=== PATIENT | male | born 1935 | race Caucasian/White ===

== ENCOUNTER 2017-12-03 23:18 | Emergency (ER) | payer BC, MEDICARE ==
[2017-12-04] MEDS ORDERED: Famotidine 20 MG Tab PO ONE (00:09)
[2017-12-04] MEDS ORDERED: Sodium Chloride 0.9% 10 ML Syringe FLUSH PRN (00:09)
[2017-12-04] MEDS ORDERED: Alum Hydrox/Mag Hydrox/Simeth 30 ML, Lidocaine 2% 15 ML PO ONE ×2 (00:11)
--- NOTE | 2017-12-04 01:26 | EDM.PDOC ---
ED HPI GENERAL MEDICAL PROBLEM - General Chief Complaint: Abdominal Pain Stated Complaint: UPPER ABDOMINAL PAIN Time Seen by Provider: 12/03/17 23:49 Source of Information: Reports: Patient History Limitations: Reports: No Limitations - History of Present Illness INITIAL COMMENTS - FREE TEXT/NARRATIVE: The patient presents with upper abdominal pain that radiates into his chest. The patient says the pain is burning. It happened last night when he laid down to go to bed. He got up and sat in his chair and it was better after awhile and he could go to bed. This evening it happened again. He is better now. He has no shortness of breath, fever, chills, nausea, or vomiting. Onset: Sudden Duration: Day(s): (Yesterday) Location: Reports: Chest, Abdomen Quality: Reports: Burning Severity: Moderate (Gone now) Improves with: Reports: None Worsens with: Reports: None Associated Symptoms: Reports: Chest Pain. Denies: Cough, Fever/Chills, Headaches, Nausea/Vomiting, Shortness of Breath - Related Data Allergies Allergy/AdvReac Type Severity Reaction Status Date / Time No Known Allergies Allergy Verified 12/03/17 23:52 Home Meds: Home Meds Losartan [Cozaar] 100 mg PO DAILY 12/03/17 [History] Past Medical History Cardiovascular History: Reports: Hypertension Social & Family History - Tobacco Use Smoking Status *Q: Former Smoker Used Tobacco, but Quit: Yes Month/Year Tobacco Last Used: 25 yrs - Caffeine Use Caffeine Use: Reports: Coffee - Recreational Drug Use Recreational Drug Use: No ED ROS GENERAL - Review of Systems Review Of Systems: See Below Constitutional: Reports: No Symptoms HEENT: Reports: No Symptoms Respiratory: Reports: No Symptoms Cardiovascular: Reports: Chest Pain Endocrine: Reports: No Symptoms GI/Abdominal: Reports: Abdominal Pain. Denies: Nausea, Vomiting : Reports: No Symptoms Musculoskeletal: Reports: No Symptoms Skin: Reports: No Symptoms ED EXAM, GI/ABD - Physical Exam Exam: See Below Exam Limited By: No Limitations General Appearance: Alert, No Apparent Distress Ears: Normal External Exam Nose: Normal Inspection Head: Atraumatic, Normocephalic Neck: Normal Inspection Respiratory/Chest: No Respiratory Distress, Lungs Clear, Normal Breath Sounds Cardiovascular: No Edema, No Murmur, Irregularly Irregular GI/Abdominal Exam: Soft, Non-Tender, No Organomegaly, No Mass Back Exam: Normal Inspection Extremities: Normal Inspection EKG INTERPRETATION EKG Date: 12/04/17 Time: 23:54 Rhythm: A-Fib Rate (Beats/Min): 77 [place]: LAD-Left [place] Deviation QRS: Normal ST-T: Normal QT: Normal EKG Interpretation Comments: Q waves in the interior and anteroseptal leads. Course - Vital Signs Last Recorded V/S: Last Vital Signs Temp 97.9 F 12/03/17 23:40 Pulse 73 12/03/17 23:40 Resp 18 12/03/17 23:40 BP 196/88 H 12/03/17 23:40 Pulse Ox 94 L 12/03/17 23:40 - Orders/Labs/Meds Orders: Active Orders 24 hr Category Date Time Status EKG Documentation Completion [RC] ASDIRECTED Care 12/04/17 01:30 Active Peripheral IV Care [RC] . DIRECTED Care 12/04/17 00:11 Active Chest 1V Frontal [CR] Stat Exams 12/04/17 00:09 Taken Sodium Chloride 0.9% [Saline Flush] Med 12/04/17 00:09 Active 10 ml FLUSH ASDIRECTED PRN ED GI Medications Reflex [OM.PC] Stat Oth 12/04/17 00:09 Ordered Peripheral IV Insertion Adult [OM.PC] Stat Oth 12/04/17 00:09 Ordered EKG 12 Lead [EK] Stat Ther 12/04/17 01:30 Ordered Medication Orders Sodium Chloride (Saline Flush) 10 ml FLUSH ASDIRECTED PRN PRN Reason: Keep Vein Open Last Admin: 12/04/17 00:24 Dose: 10 ml Labs: Laboratory Tests 12/04/17 12/04/17 Range/Units 00:28 00:28 WBC 7.22 (4.23-9.07) K/mm3 RBC 4.40 L (4.63-6.08) M/mm3 Hgb 13.6 L (13.7-17.5) gm/L Hct 39.3 L (40.1-51.0) % MCV 89.3 (79.0-92.2) fl MCH 30.9 (25.7-32.2) pg MCHC 34.6 (32.2-35.5) g/dl RDW Std Deviation 43.5 (35.1-43.9) fL Plt Count 242 (163-337) K/mm3 MPV 10.4 (9.4-12.3) fl Neut % (Auto) 67.1 (34.0-67.9) % Lymph % (Auto) 23.0 (21.8-53.1) % [place] % (Auto) 6.4 (5.3-12.2) % Eos % (Auto) 3.0 (0.8-7.0) Baso % (Auto) 0.4 (0.1-1.2) % Neut # (Auto) 4.84 (1.78-5.38) K/mm3 Lymph # (Auto) 1.66 (1.32-3.57) K/mm3 [place] # (Auto) 0.46 (0.30-0.82) K/mm3 Eos # (Auto) 0.22 (0.04-0.54) K/mm3 Baso # (Auto) 0.03 (0.01-0.08) K/mm3 Sodium 139 (136-145) mEq/L Potassium 4.0 (3.5-5.1) mEq/L Chloride 104 (98-107) mEq/L Carbon Dioxide 23 (21-32) mEq/L Anion Gap 16.0 H (5-15) BUN 28 H (7-18) mg/dL Creatinine 1.6 H (0.7-1.3) mg/dL Est Cr Clr Drug Dosing 34.44 mL/min Estimated GFR (MDRD) 42 (>60) mL/min BUN/Creatinine Ratio 17.5 (14-18) Glucose 195 H (83-115) mg/dL Calcium 8.5 (8.5-10.1) mg/dL Total Bilirubin 0.7 (0.2-1.0) mg/dL AST 20 (15-37) U/L ALT 36 (16-63) U/L Alkaline Phosphatase 56 (46-116) U/L Troponin I < 0.017 (0.00-0.056) ng/mL Total Protein 7.1 (6.4-8.2) g/dl Albumin 3.9 (3.4-5.0) g/dl Globulin 3.2 gm/dL Albumin/Globulin Ratio 1.2 (1-2) Meds: Medications Generic Name Dose Route Start Last Admin Trade Name Freq PRN Reason Stop Dose Admin Sodium Chloride 10 ml 12/04/17 00:09 12/04/17 00:24 Saline Flush FLUSH 10 ml ASDIRECTED PRN Administration Keep Vein Open Discontinued Medications Generic Name Dose Route Start Last Admin Trade Name Sharad PRN Reason Stop Dose Admin Al Hydroxide/Mg Hydroxide 30 0 ml 12/04/17 00:11 12/04/17 00:24 ml/ Lidocaine HCl 15 ml PO 12/04/17 00:12 45 ml ONETIME ONE Administration Famotidine 20 mg 12/04/17 00:09 12/04/17 00:24 Pepcid PO 12/04/17 00:10 20 mg ONETIME ONE Administration - Re-Assessments/Exams Free Text/Narrative Re-Assessment/Exam: 12/04/17 01:25 I ordered an IV saline lock, pepcid 20mg IV, GI cocktail, EKG, CXR and labs. His CXR looks good. His initial EKG did not show any P waves and there was some irregularity to it. I was thinking this could be A-fib but I was watching the monitor and he did have p waves there. I did another EKG and he had a NSR with no acute changes. His CXR looks good. His CBC looked good. His creatinine was slightly elevated at 1.6. He feels better. I feel this was some reflux. I will have him take some pepcid for a week. Departure - Departure Time of Disposition: 02:00 Disposition: Home, Self-Care 01 Condition: Good Clinical Impression: Reflux esophagitis - Discharge Information *PRESCRIPTION DRUG MONITORING PROGRAM REVIEWED*: Not Applicable *COPY OF PRESCRIPTION DRUG MONITORING REPORT IN PATIENT RON: Not Applicable Referrals: Aris Falcon MD [Primary Care Provider] - 1 Week Forms: ED Department Discharge Additional Instructions: Take pepcid daily for a week. Try to avoid spicy foods and do not eat to late. Please return if you are worse. - My Orders Last 24 Hours: My Active Orders 12/04/17 00:09 Chest 1V Frontal [CR] Stat Sodium Chloride 0.9% [Saline Flush] 10 ml FLUSH ASDIRECTED PRN ED GI Medications Reflex [OM.PC] Stat Peripheral IV Insertion Adult [OM.PC] Stat 12/04/17 00:11 Peripheral IV Care [RC] . DIRECTED 12/04/17 01:30 EKG Documentation Completion [RC] ASDIRECTED EKG 12 Lead [EK] Stat - Assessment/Plan Last 24 Hours: My Active Orders 12/04/17 00:09 Chest 1V Frontal [CR] Stat Sodium Chloride 0.9% [Saline Flush] 10 ml FLUSH ASDIRECTED PRN ED GI Medications Reflex [OM.PC] Stat Peripheral IV Insertion Adult [OM.PC] Stat 12/04/17 00:11 Peripheral IV Care [RC] . DIRECTED 12/04/17 01:30 EKG Documentation Completion [RC] ASDIRECTED EKG 12 Lead [EK] Stat
--- NOTE | 2017-12-04 13:31 | CR ---
Chest: Portable view of the chest was obtained. Comparison: No prior chest x-ray. Heart size at the upper limits of normal. Tortuous thoracic aorta is seen. Lungs are clear without acute parenchymal change. Bony structures are grossly intact. Impression: 1. Nothing acute is seen on portable chest x-ray. Diagnostic code #2
== END 2017-12-04 02:14 | disposition home or self-care (01) ==
LOC: SUPCPDRO 23:18 → JD.ED 23:18
DX: K21.0 Gastro-esophageal reflux disease with esophagitis (principal); I10 Essential (primary) hypertension; Z87.891 Personal history of nicotine dependence; Z79.899 Other long term (current) drug therapy
CPT/HCPCS: 36415; 71045; 80053; 84484; 85025; 93005; 99285; A9270; J7050; 93010; 99283-25

== ENCOUNTER 2017-12-08 13:08 | Observation (INO) | payer MEDICARE, BC ==
[2017-12-08] MEDS ORDERED: Sodium Chloride 0.9% 10 ML Syringe FLUSH PRN (13:39)
[2017-12-08] MEDS ORDERED: Aspirin 81 MG Tab.Chew PO ONE (13:39)
[2017-12-08] MEDS ORDERED: Famotidine 20 MG/2 ML SDV IVPUSH ONE (13:40)
--- NOTE | 2017-12-08 15:13 | EDM.PDOC ---
ED HPI GENERAL MEDICAL PROBLEM - General Chief Complaint: Gastrointestinal Problem Stated Complaint: CHEST PAIN Time Seen by Provider: 12/08/17 13:13 Source of Information: Reports: Patient History Limitations: Reports: No Limitations - History of Present Illness INITIAL COMMENTS - FREE TEXT/NARRATIVE: The patient presents with epigastric pain that radiates to his chest. This started about 1/2 hour before arrival. This has been on ongoing problem for the past 6 days. He was seen her by me 5 days ago for the same. His EKG, CXR and labs looked good. I gave him some pepcid IV and a GI cocktail and he did good. He continues to have episodes of this burning chest pain. The pain will come and go. It usually lasts for 15 minutes at a time and goes away for hours. He says this happens when he walks at times. He is also short of breath at times. He usually walks a mile a day but he has been doing less because of the chest pain. He went to see Dr Falcon today and he did an EKG and checked his troponin. His EKG looked good and his troponin was negative. He set up a stress test for tomorrow. Dr Falcon told the patient if he had more pain to come in to the ER right away. He had more pain and came in. The pain is gone now. He has no fever, chills, cough, nausea or vomiting. He has a history of hypertension but no GA. Onset: Gradual Duration: Day(s): (6) Location: Reports: Chest Quality: Reports: Burning Severity: Moderate Improves with: Reports: None Worsens with: Reports: None Associated Symptoms: Reports: Chest Pain, Shortness of Breath Treatments FIRE ADJUSTER: Reports: Other (see below) Other Treatments FIRE ADJUSTER: seen in clinic epigastric Pain Score (Numeric/FACES): 8 - Related Data Allergies Allergy/AdvReac Type Severity Reaction Status Date / Time No Known Allergies Allergy Verified 12/08/17 13:18 Home Meds: Home Meds Losartan [Cozaar] 100 mg PO DAILY 12/03/17 [History] Ascorbate Calcium [Vitamin C] 500 mg PO DAILY 12/08/17 [History] Aspirin 81 mg PO DAILY 12/08/17 [History] Cyanocobalamin (Vitamin B12) [Vitamin B12] 1,000 mcg PO DAILY 12/08/17 [History] Naproxen Sodium [Aleve] 220 mg PO BID PRN 12/08/17 [History] Vitamin B Complex & Vit C No.4 [Super B Complex] 150 mg PO DAILY 12/08/17 [ History] Past Medical History HEENT History: Reports: Impaired Vision Cardiovascular History: Reports: Hypertension Respiratory History: Reports: SOB Gastrointestinal History: Reports: GERD Other Gastrointestinal History: reflux Social & Family History - Family History Family Medical History: Noncontributory - Tobacco Use Smoking Status *Q: Never Smoker Second Hand Smoke Exposure: No - Caffeine Use Caffeine Use: Reports: Coffee - Recreational Drug Use Recreational Drug Use: No ED ROS GENERAL - Review of Systems Review Of Systems: See Below Constitutional: Reports: No Symptoms HEENT: Reports: No Symptoms Respiratory: Reports: Shortness of Breath Cardiovascular: Reports: Chest Pain Endocrine: Reports: No Symptoms GI/Abdominal: Reports: No Symptoms : Reports: No Symptoms Musculoskeletal: Reports: No Symptoms ED EXAM, GI/ABD - Physical Exam Exam: See Below Exam Limited By: No Limitations General Appearance: Alert, No Apparent Distress Ears: Normal External Exam Nose: Normal Inspection Head: Atraumatic, Normocephalic Neck: Normal Inspection Respiratory/Chest: No Respiratory Distress, Lungs Clear, Normal Breath Sounds Cardiovascular: Regular Rate, Rhythm, No Edema, No Murmur GI/Abdominal Exam: Soft, Non-Tender, No Organomegaly, No Mass Back Exam: Normal Inspection Extremities: Normal Inspection Neurological: Alert, Oriented, No Motor/Sensory Deficits EKG INTERPRETATION EKG Date: 12/08/17 Time: 13:23 Rhythm: NSR Rate (Beats/Min): 66 [place]: Normal P-Wave: Present QRS: Normal ST-T: Normal QT: Normal OR/PQ Interval: 1st degree HB Course - Vital Signs Last Recorded V/S: Last Vital Signs Temp 98.2 F 12/08/17 13:08 Pulse 69 12/08/17 13:56 Resp 20 12/08/17 13:56 BP 144/68 H 12/08/17 13:56 Pulse Ox 94 L 12/08/17 13:56 - Orders/Labs/Meds Orders: Active Orders 24 hr Category Date Time Status Cardiac Monitoring [RC] . DIRECTED Care 12/08/17 13:39 Active EKG Documentation Completion [RC] ASDIRECTED Care 12/08/17 13:25 Active Peripheral IV Care [RC] . DIRECTED Care 12/08/17 13:40 Active Chest 1V Frontal [CR] Stat Exams 12/08/17 13:40 Taken Sodium Chloride 0.9% [Saline Flush] Med 12/08/17 13:39 Active 10 ml FLUSH ASDIRECTED PRN Peripheral IV Insertion Adult [OM.PC] Stat Oth 12/08/17 13:39 Ordered EKG 12 Lead [EK] Stat Ther 12/08/17 13:25 Ordered Medication Orders Sodium Chloride (Saline Flush) 10 ml FLUSH ASDIRECTED PRN PRN Reason: Keep Vein Open Last Admin: 12/08/17 13:53 Dose: 10 ml Labs: Laboratory Tests 12/08/17 12/08/17 12/08/17 Range/Units 13:25 13:25 13:25 WBC 8.79 (4.23-9.07) K/mm3 RBC 4.82 (4.63-6.08) M/mm3 Hgb 15.1 (13.7-17.5) gm/L Hct 43.4 (40.1-51.0) % MCV 90.0 (79.0-92.2) fl MCH 31.3 (25.7-32.2) pg MCHC 34.8 (32.2-35.5) g/dl RDW Std Deviation 44.0 H (35.1-43.9) fL Plt Count 249 (163-337) K/mm3 MPV 10.6 (9.4-12.3) fl Neut % (Auto) 62.6 (34.0-67.9) % Lymph % (Auto) 28.8 (21.8-53.1) % [place] % (Auto) 5.9 (5.3-12.2) % Eos % (Auto) 2.3 (0.8-7.0) Baso % (Auto) 0.2 (0.1-1.2) % Neut # (Auto) 5.50 H (1.78-5.38) K/mm3 Lymph # (Auto) 2.53 (1.32-3.57) K/mm3 [place] # (Auto) 0.52 (0.30-0.82) K/mm3 Eos # (Auto) 0.20 (0.04-0.54) K/mm3 Baso # (Auto) 0.02 (0.01-0.08) K/mm3 D-Dimer, Quantitative 0.49 (0.19-0.50) mg/L Sodium 138 (136-145) mEq/L Potassium 3.9 (3.5-5.1) mEq/L Chloride 101 (98-107) mEq/L Carbon Dioxide 25 (21-32) mEq/L Anion Gap 15.9 H (5-15) BUN 23 H (7-18) mg/dL Creatinine 1.7 H (0.7-1.3) mg/dL Est Cr Clr Drug Dosing 32.41 mL/min Estimated GFR (MDRD) 39 (>60) mL/min BUN/Creatinine Ratio 13.5 L (14-18) Glucose 264 H (83-115) mg/dL Calcium 9.1 (8.5-10.1) mg/dL Total Bilirubin 0.9 (0.2-1.0) mg/dL AST 21 (15-37) U/L ALT 46 (16-63) U/L Alkaline Phosphatase 60 (46-116) U/L Troponin I 0.023 (0.00-0.056) ng/mL Total Protein 7.9 (6.4-8.2) g/dl Albumin 4.2 (3.4-5.0) g/dl Globulin 3.7 gm/dL Albumin/Globulin Ratio 1.1 (1-2) H. pylori IgG Antibody (NEGATIVE) 12/08/17 Range/Units 13:25 WBC (4.23-9.07) K/mm3 RBC (4.63-6.08) M/mm3 Hgb (13.7-17.5) gm/L Hct (40.1-51.0) % MCV (79.0-92.2) fl MCH (25.7-32.2) pg MCHC (32.2-35.5) g/dl RDW Std Deviation (35.1-43.9) fL Plt Count (163-337) K/mm3 MPV (9.4-12.3) fl Neut % (Auto) (34.0-67.9) % Lymph % (Auto) (21.8-53.1) % [place] % (Auto) (5.3-12.2) % Eos % (Auto) (0.8-7.0) Baso % (Auto) (0.1-1.2) % Neut # (Auto) (1.78-5.38) K/mm3 Lymph # (Auto) (1.32-3.57) K/mm3 [place] # (Auto) (0.30-0.82) K/mm3 Eos # (Auto) (0.04-0.54) K/mm3 Baso # (Auto) (0.01-0.08) K/mm3 D-Dimer, Quantitative (0.19-0.50) mg/L Sodium (136-145) mEq/L Potassium (3.5-5.1) mEq/L Chloride (98-107) mEq/L Carbon Dioxide (21-32) mEq/L Anion Gap (5-15) BUN (7-18) mg/dL Creatinine (0.7-1.3) mg/dL Est Cr Clr Drug Dosing mL/min Estimated GFR (MDRD) (>60) mL/min BUN/Creatinine Ratio (14-18) Glucose (83-115) mg/dL Calcium (8.5-10.1) mg/dL Total Bilirubin (0.2-1.0) mg/dL AST (15-37) U/L ALT (16-63) U/L Alkaline Phosphatase (46-116) U/L Troponin I (0.00-0.056) ng/mL Total Protein (6.4-8.2) g/dl Albumin (3.4-5.0) g/dl Globulin gm/dL Albumin/Globulin Ratio (1-2) H. pylori IgG Antibody Negative (NEGATIVE) Meds: Medications Generic Name Dose Route Start Last Admin Trade Name Freq PRN Reason Stop Dose Admin Sodium Chloride 10 ml 12/08/17 13:39 12/08/17 13:53 Saline Flush FLUSH 10 ml ASDIRECTED PRN Administration Keep Vein Open Discontinued Medications Generic Name Dose Route Start Last Admin Trade Name Freq PRN Reason Stop Dose Admin Aspirin 324 mg 12/08/17 13:39 12/08/17 13:53 Aspirin PO 12/08/17 13:40 324 mg ONETIME ONE Administration Famotidine 20 mg 12/08/17 13:40 12/08/17 13:53 Pepcid IVPUSH 08/20/18 13:41 20 mg ONETIME ONE Administration - Re-Assessments/Exams Free Text/Narrative Re-Assessment/Exam: 12/08/17 15:19 I ordered an IV saline lock, EKG, CXR, labs and aspirin. His EKG shows a NSR with no acute changes. His CXR shows nothing acute. His CBC and CMP look good. His troponin and D-dimer were normal. He still has no pain. I called Dr Falcon and we both agreed he should be admitted and stressed in the morning. I called Dr Tavares and she will come see the patient. 12/08/17 16:09 Dr Tavares agreed to the observation admission. Departure - Departure Time of Disposition: 16:10 Disposition: Refer to Observation Condition: Good Clinical Impression: Chest pain Qualifiers: Chest pain type: unspecified Qualified Code(s): R07.9 - Chest pain, unspecified - Discharge Information *PRESCRIPTION DRUG MONITORING PROGRAM REVIEWED*: Not Applicable *COPY OF PRESCRIPTION DRUG MONITORING REPORT IN PATIENT RON: Not Applicable Referrals: Aris Falcon MD [Primary Care Provider] - Forms: ED Department Discharge - My Orders Last 24 Hours: My Active Orders 12/08/17 13:25 EKG Documentation Completion [RC] ASDIRECTED EKG 12 Lead [EK] Stat 12/08/17 13:39 Cardiac Monitoring [RC] . DIRECTED Sodium Chloride 0.9% [Saline Flush] 10 ml FLUSH ASDIRECTED PRN Peripheral IV Insertion Adult [OM.PC] Stat 12/08/17 13:40 Peripheral IV Care [RC] . DIRECTED Chest 1V Frontal [CR] Stat - Assessment/Plan Last 24 Hours: My Active Orders 12/08/17 13:25 EKG Documentation Completion [RC] ASDIRECTED EKG 12 Lead [EK] Stat 12/08/17 13:39 Cardiac Monitoring [RC] . DIRECTED Sodium Chloride 0.9% [Saline Flush] 10 ml FLUSH ASDIRECTED PRN Peripheral IV Insertion Adult [OM.PC] Stat 12/08/17 13:40 Peripheral IV Care [RC] . DIRECTED Chest 1V Frontal [CR] Stat
--- NOTE | 2017-12-08 20:04 | PCM.PN ---
- General Info Date of Service: 12/08/17 Functional Status: Reports: Tolerating Diet, Ambulating, Urinating - Review of Systems General: Reports: No Symptoms HEENT: Reports: No Symptoms Pulmonary: Reports: Shortness of Breath Cardiovascular: Reports: Chest Pain Gastrointestinal: Reports: No Symptoms Genitourinary: Reports: No Symptoms Musculoskeletal: Reports: No Symptoms Skin: Reports: No Symptoms Neurological: Reports: No Symptoms Psychiatric: Reports: No Symptoms - Patient Data Vitals - Most Recent: Last Vital Signs Temp 36.4 C 12/08/17 17:21 Pulse 65 12/08/17 17:21 Resp 20 12/08/17 17:21 BP 126/97 H 12/08/17 18:24 Pulse Ox 95 12/08/17 17:21 Weight - Most Recent: 86.409 kg Lab Results Last 24 Hours: Laboratory Results - last 24 hr 12/08/17 12/08/17 12/08/17 Range/Units 13:25 13:25 13:25 WBC 8.79 (4.23-9.07) K/mm3 RBC 4.82 (4.63-6.08) M/mm3 Hgb 15.1 (13.7-17.5) gm/L Hct 43.4 (40.1-51.0) % MCV 90.0 (79.0-92.2) fl MCH 31.3 (25.7-32.2) pg MCHC 34.8 (32.2-35.5) g/dl RDW Std Deviation 44.0 H (35.1-43.9) fL Plt Count 249 (163-337) K/mm3 MPV 10.6 (9.4-12.3) fl Neut % (Auto) 62.6 (34.0-67.9) % Lymph % (Auto) 28.8 (21.8-53.1) % [place] % (Auto) 5.9 (5.3-12.2) % Eos % (Auto) 2.3 (0.8-7.0) Baso % (Auto) 0.2 (0.1-1.2) % Neut # (Auto) 5.50 H (1.78-5.38) K/mm3 Lymph # (Auto) 2.53 (1.32-3.57) K/mm3 [place] # (Auto) 0.52 (0.30-0.82) K/mm3 Eos # (Auto) 0.20 (0.04-0.54) K/mm3 Baso # (Auto) 0.02 (0.01-0.08) K/mm3 D-Dimer, Quantitative 0.49 (0.19-0.50) mg/L Sodium 138 (136-145) mEq/L Potassium 3.9 (3.5-5.1) mEq/L Chloride 101 (98-107) mEq/L Carbon Dioxide 25 (21-32) mEq/L Anion Gap 15.9 H (5-15) BUN 23 H (7-18) mg/dL Creatinine 1.7 H (0.7-1.3) mg/dL Est Cr Clr Drug Dosing 32.41 mL/min Estimated GFR (MDRD) 39 (>60) mL/min BUN/Creatinine Ratio 13.5 L (14-18) Glucose 264 H (83-115) mg/dL Calcium 9.1 (8.5-10.1) mg/dL Total Bilirubin 0.9 (0.2-1.0) mg/dL AST 21 (15-37) U/L ALT 46 (16-63) U/L Alkaline Phosphatase 60 (46-116) U/L Troponin I 0.023 (0.00-0.056) ng/mL Total Protein 7.9 (6.4-8.2) g/dl Albumin 4.2 (3.4-5.0) g/dl Globulin 3.7 gm/dL Albumin/Globulin Ratio 1.1 (1-2) H. pylori IgG Antibody (NEGATIVE) 12/08/17 Range/Units 13:25 WBC (4.23-9.07) K/mm3 RBC (4.63-6.08) M/mm3 Hgb (13.7-17.5) gm/L Hct (40.1-51.0) % MCV (79.0-92.2) fl MCH (25.7-32.2) pg MCHC (32.2-35.5) g/dl RDW Std Deviation (35.1-43.9) fL Plt Count (163-337) K/mm3 MPV (9.4-12.3) fl Neut % (Auto) (34.0-67.9) % Lymph % (Auto) (21.8-53.1) % [place] % (Auto) (5.3-12.2) % Eos % (Auto) (0.8-7.0) Baso % (Auto) (0.1-1.2) % Neut # (Auto) (1.78-5.38) K/mm3 Lymph # (Auto) (1.32-3.57) K/mm3 [place] # (Auto) (0.30-0.82) K/mm3 Eos # (Auto) (0.04-0.54) K/mm3 Baso # (Auto) (0.01-0.08) K/mm3 D-Dimer, Quantitative (0.19-0.50) mg/L Sodium (136-145) mEq/L Potassium (3.5-5.1) mEq/L Chloride (98-107) mEq/L Carbon Dioxide (21-32) mEq/L Anion Gap (5-15) BUN (7-18) mg/dL Creatinine (0.7-1.3) mg/dL Est Cr Clr Drug Dosing mL/min Estimated GFR (MDRD) (>60) mL/min BUN/Creatinine Ratio (14-18) Glucose (83-115) mg/dL Calcium (8.5-10.1) mg/dL Total Bilirubin (0.2-1.0) mg/dL AST (15-37) U/L ALT (16-63) U/L Alkaline Phosphatase (46-116) U/L Troponin I (0.00-0.056) ng/mL Total Protein (6.4-8.2) g/dl Albumin (3.4-5.0) g/dl Globulin gm/dL Albumin/Globulin Ratio (1-2) H. pylori IgG Antibody Negative (NEGATIVE) Med Orders - Current: Current Medications Sodium Chloride (Saline Flush) 10 ml FLUSH ASDIRECTED PRN PRN Reason: Keep Vein Open Last Admin: 12/08/17 13:53 Dose: 10 ml Discontinued Medications Aspirin (Aspirin) 324 mg PO ONETIME ONE Stop: 12/08/17 13:40 Last Admin: 12/08/17 13:53 Dose: 324 mg Famotidine (Pepcid) 20 mg IVPUSH ONETIME ONE Stop: 12/08/17 13:41 Last Admin: 12/08/17 13:53 Dose: 20 mg - Exam Quality Assessment: DVT Prophylaxis General: Alert, Oriented, Cooperative, No Acute Distress HEENT: Pupils Equal, Pupils Reactive, EOMI Neck: Trachea Midline, No JVD Lungs: Normal Respiratory Effort Cardiovascular: Regular Rate, Regular Rhythm GI/Abdominal Exam: Normal Bowel Sounds, Soft, Non-Tender, No Organomegaly (Male) Exam: Deferred Back Exam: Normal Inspection Extremities: Normal Inspection, Non-Tender, Normal Capillary Refill Skin: Warm Neurological: No New Focal Deficit Psy/Mental Status: Alert, Normal Affect, Normal Mood - My Orders Last 24 Hours: My Active Orders 12/08/17 17:51 Resuscitation Status Routine 12/08/17 Dinner Clear Liquid Diet [DIET] 12/09/17 Breakfast NPO After Midnight [Nothing per Oral After Midnight Diet] [DIET]
[2017-12-08] MEDS ORDERED: Nitroglycerin 0.4 MG Tab.SL SL PRN (20:10)
--- NOTE | 2017-12-09 09:32 | PCM.PRNOTE ---
- Free Text/Narrative Note: Date of service: 12/09/17 Procedure: Regadenoson (Lexiscan) stress test Ordering provider: Dr. Jennifer Tavares Indication: Chest pain Baseline EKG: Sinus rhythm with frequent PACs at 67 bpm The patient recieved Regadenoson (Lexiscan) 0.4 mg IV and a nuclear agent using standard protocol. The patient was seated for the procedure. Lexiscan test: Heart rate: 93 bpm; Blood pressure: 165/71 mm Hg; Oxygenation: 98 %. EKG changes of ischemia during stress test or in recovery: None Arrhythmias: None Adverse effects of Lexiscan: Generalized "Not feeling well" patient was unable to give specifics. This did not include chest pain, shortness of breath, nausea , vomiting, or dizziness. All symptoms resolved spontaneously prior to end of exam. Test terminated due to: end of protocol Of note: Initially attempted exercise stress test, however after 2 minutes and 30 seconds of exercise the patient began to complain of 8/10 substernal chest pain. No changes were noted on the EKG to indicate ischemia. Test was stopped and he was moved to chair. Pain rapidly resolved. Dr. Tavares was consulted and the decision was made to perform a Lexiscan stress test, which he tolerated well. He did complain of 9/10 chest pain approximately 6 minutes after Lexiscan was given, which resolved rapidly. It is felt this would likely be outside the window to be an acute affect of Lexiscan. Impression: 1. Negative Lexiscan stress test ECG for ischemia. 2. Nuclear images pending and will be reported separately per Radiologist.
[2017-12-09] MEDS: Aspirin 81 MG Tab.Chew PO SCH (09:36)
[2017-12-09] MEDS: Losartan 100 MG Tab PO SCH (09:57)
--- NOTE | 2017-12-09 14:03 | NM ---
Cardiac cardiac exam Technique: Patient was stressed utilizing Lexiscan protocol. Stress dose of technetium 99m Cardiolite was 10.8 mCi. Rest dose was 31.2 mCi. SPECT imaging was obtained in 3 planes for both portions of the study. Study was also gated. Comparison: No prior cardiac imaging. Findings: Inferior wall defect is identified which appears fairly similar between rest and stress study. No definite reversible changes seen. 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 No reversible change is identified. Ejection fraction is 70%. Other portions of the left ventricular myocardium show normal wall thickening. Impression: 1. 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 2. No findings of reversible ischemia are seen. Diagnostic code #3
[2017-12-09] MEDS: Famotidine 20 MG/2 ML SDV IVPUSH SCH (14:17)
[2017-12-09] MEDS ORDERED: Alum Hydrox/Mag Hydrox/Simeth 30 ML, Lidocaine 2% 15 ML PO ONE ×2 (14:43)
--- NOTE | 2017-12-09 15:12 | PCM.HP ---
H&P History of Present Illness - General Date of Service: 12/08/17 Admit Problem/Dx: Admission Diagnosis/Problem Admission Diagnosis/Problem Chest pain Source of Information: Patient, Provider History Limitations: Reports: No Limitations - History of Present Illness Initial Comments - Free Text/Narative: HPI: This is an 82 yo male with past medical h/o GERD, SOB, HTN, Impaired Vision who comes in for chest pain x 6 days. He states he does have some SOB with the pain only. He denies any F/C, N/V/D, abdominal pain, cough, anxiety, acid reflux or other GI/ complaints. His symptoms improved after receiving ASA, pepcid IV, and a GI cocktail in the ED. His initial workup in the ED showed an unremarkable CBC. His chemistry is remarkable for Anion Gap 15.9, BUN 23, Cr 1.7, eGFR 39, Glu 264. EKG shows NSR with no acute changes. His troponin and D-dimer were normal. H-Pylori negative. CXR shows nothing acute. He is subsequently admitted to observation. He is Full code. His PCP is Dr. Falcon. epigastric Pain Score (Numeric/FACES): 8 - Related Data Allergies/Adverse Reactions: Allergies Allergy/AdvReac Type Severity Reaction Status Date / Time No Known Allergies Allergy Verified 12/08/17 13:18 Home Medications: Home Meds Losartan [Cozaar] 100 mg PO DAILY 12/03/17 [History] Ascorbate Calcium [Vitamin C] 500 mg PO DAILY 12/08/17 [History] Aspirin 81 mg PO DAILY 12/08/17 [History] Cyanocobalamin (Vitamin B12) [Vitamin B12] 1,000 mcg PO DAILY 12/08/17 [History] Naproxen Sodium [Aleve] 220 mg PO BID PRN 12/08/17 [History] Vitamin B Complex & Vit C No.4 [Super B Complex] 150 mg PO DAILY 12/08/17 [ History] Past Medical History HEENT History: Reports: Cataract, Impaired Vision Cardiovascular History: Reports: Hypertension Respiratory History: Reports: SOB Gastrointestinal History: Reports: GERD Other Gastrointestinal History: reflux - Past Surgical History HEENT Surgical History: Reports: Cataract Surgery Cardiovascular Surgical History: Reports: None Respiratory Surgical History: Reports: None GI Surgical History: Reports: None Musculoskeletal Surgical History: Reports: Hip Replacement Social & Family History - Family History Family Medical History: Noncontributory - Tobacco Use Smoking Status *Q: Former Smoker Years of Tobacco use: 40 Packs/Tins Daily: 0.5 Used Tobacco, but Quit: Yes Month/Year Tobacco Last Used: 20 years Second Hand Smoke Exposure: No - Caffeine Use Caffeine Use: Reports: Coffee, Energy Drinks - Alcohol Use Days Per Week of Alcohol Use: 5 Number of Drinks Per Day: 3 Total Drinks Per Week: 15 Date of Last Drink: 12/01/17 Time of Last Drink: 20:00 - Recreational Drug Use Recreational Drug Use: No H&P Review of Systems - Review of Systems: Review Of Systems: See Below General: Reports: No Symptoms. Denies: Fever, Chills HEENT: Reports: No Symptoms Pulmonary: Reports: Shortness of Breath (with onset of chest pain only). Denies : Wheezing, Cough Cardiovascular: Reports: Chest Pain (x 5 days, comes and goes randomly), Blood Pressure Problem. Denies: Palpitations, Dyspnea on Exertion, Edema Gastrointestinal: Reports: No Symptoms. Denies: Abdominal Pain, Bloody Stool, Diarrhea, Nausea, Vomiting Genitourinary: Reports: No Symptoms Musculoskeletal: Reports: No Symptoms Skin: Reports: No Symptoms Psychiatric: Reports: No Symptoms Neurological: Reports: No Symptoms Hematologic/Lymphatic: Reports: No Symptoms Immunologic: Reports: No Symptoms Exam - Exam Exam: See Below - Vital Signs Vital Signs: Last Vital Signs Temp 97.7 F 12/09/17 09:38 Pulse 63 12/09/17 11:03 Resp 16 12/09/17 09:38 BP 139/83 12/09/17 11:03 Pulse Ox 92 L 12/09/17 11:03 Weight: 188 lb 3.2 oz - Exam Quality Assessment: DVT Prophylaxis General: Alert, Oriented, Cooperative, Mild Distress HEENT: PERRLA, Hearing Intact, Mucosa Moist & [place], Nares Patent, Normal Nasal Septum, Posterior Pharynx Clear, Conjunctiva Clear, EOMI, EACs Clear, TMs Clear Neck: Supple, Trachea Midline, 2 Lungs: Clear to Auscultation, Normal Respiratory Effort Cardiovascular: Regular Rate, Regular Rhythm GI/Abdominal Exam: Normal Bowel Sounds, Soft, Non-Tender, No Organomegaly, No Distention, No Abnormal Bruit, No Mass, Pelvis Stable (Male) Exam: Deferred Rectal (Males) Exam: Deferred Back Exam: Normal Inspection, Full Range of Motion, NT Extremities: Normal Inspection, Normal Range of Motion, Non-Tender, No Pedal Edema, Normal Capillary Refill Peripheral Pulses: 2+: Posterior Tibial (L), Posterior Tibial (R), Dorsalis Pedis (L), Dorsalis Pedis (R) Skin: Warm, Dry, Intact Neurological: Cranial Nerves Intact (grossly) Neuro Extensive - Mental Status: Alert, Oriented x3, Normal Mood/Affect, Normal Cognition Psychiatric: Alert, Agitated - Patient Data Lab Results Last 24 hrs: Laboratory Results - last 24 hr 12/08/17 12/09/17 12/09/17 Range/Units 21:23 05:25 05:25 WBC 7.90 (4.23-9.07) K/mm3 RBC 4.79 (4.63-6.08) M/mm3 Hgb 14.9 (13.7-17.5) gm/L Hct 43.1 (40.1-51.0) % MCV 90.0 (79.0-92.2) fl MCH 31.1 (25.7-32.2) pg MCHC 34.6 (32.2-35.5) g/dl RDW Std Deviation 44.0 H (35.1-43.9) fL Plt Count 234 (163-337) K/mm3 MPV 10.7 (9.4-12.3) fl Neut % (Auto) 57.3 (34.0-67.9) % Lymph % (Auto) 30.4 (21.8-53.1) % [place] % (Auto) 7.8 (5.3-12.2) % Eos % (Auto) 3.8 (0.8-7.0) Baso % (Auto) 0.4 (0.1-1.2) % Neut # (Auto) 4.53 (1.78-5.38) K/mm3 Lymph # (Auto) 2.40 (1.32-3.57) K/mm3 [place] # (Auto) 0.62 (0.30-0.82) K/mm3 Eos # (Auto) 0.30 (0.04-0.54) K/mm3 Baso # (Auto) 0.03 (0.01-0.08) K/mm3 Sodium 139 (136-145) mEq/L Potassium 4.1 (3.5-5.1) mEq/L Chloride 104 (98-107) mEq/L Carbon Dioxide 24 (21-32) mEq/L Anion Gap 15.1 H (5-15) BUN 19 H (7-18) mg/dL Creatinine 1.4 H (0.7-1.3) mg/dL Est Cr Clr Drug Dosing 39.36 mL/min Estimated GFR (MDRD) 49 (>60) mL/min BUN/Creatinine Ratio 13.6 L (14-18) Glucose 165 H (83-115) mg/dL Calcium 8.8 (8.5-10.1) mg/dL Troponin I 0.029 (0.00-0.056) ng/mL 12/09/17 Range/Units 05:25 WBC (4.23-9.07) K/mm3 RBC (4.63-6.08) M/mm3 Hgb (13.7-17.5) gm/L Hct (40.1-51.0) % MCV (79.0-92.2) fl MCH (25.7-32.2) pg MCHC (32.2-35.5) g/dl RDW Std Deviation (35.1-43.9) fL Plt Count (163-337) K/mm3 MPV (9.4-12.3) fl Neut % (Auto) (34.0-67.9) % Lymph % (Auto) (21.8-53.1) % [place] % (Auto) (5.3-12.2) % Eos % (Auto) (0.8-7.0) Baso % (Auto) (0.1-1.2) % Neut # (Auto) (1.78-5.38) K/mm3 Lymph # (Auto) (1.32-3.57) K/mm3 [place] # (Auto) (0.30-0.82) K/mm3 Eos # (Auto) (0.04-0.54) K/mm3 Baso # (Auto) (0.01-0.08) K/mm3 Sodium (136-145) mEq/L Potassium (3.5-5.1) mEq/L Chloride (98-107) mEq/L Carbon Dioxide (21-32) mEq/L Anion Gap (5-15) BUN (7-18) mg/dL Creatinine (0.7-1.3) mg/dL Est Cr Clr Drug Dosing mL/min Estimated GFR (MDRD) (>60) mL/min BUN/Creatinine Ratio (14-18) Glucose (83-115) mg/dL Calcium (8.5-10.1) mg/dL Troponin I < 0.017 (0.00-0.056) ng/mL Result Diagrams: 12/09/17 05:25 12/09/17 05:25 - Problem List (1) Chest pain SNOMED Code(s): 56498364 ICD Code: R07.9 - CHEST PAIN, UNSPECIFIED Status: Acute Priority: High Current Visit: Yes Qualifiers: Chest pain type: unspecified Qualified Code(s): R07.9 - Chest pain, unspecified (2) Reflux esophagitis SNOMED Code(s): 722115376 ICD Code: K21.0 - GASTRO-ESOPHAGEAL REFLUX DISEASE WITH ESOPHAGITIS Status : Acute Priority: High Current Visit: Yes Problem List Initiated/Reviewed/Updated: Yes Orders Last 24hrs: Active Orders 24 hr Category Date Time Status Patient Status [ADT] Routine ADT 12/08/17 16:35 Active Activity as Tolerated [RC] .Routine Care 12/08/17 20:30 Active Up ad Linda [RC] ASDIRECTED Care 12/08/17 20:30 Active Heart Healthy Diet [DIET] Diet 12/09/17 Dinner Active Echo Comp wo Cont [US] Routine Exams 12/09/17 14:44 Ordered BASIC METABOLIC PANEL,BMP [CHEM] AM Lab 12/10/17 05:11 Ordered BASIC METABOLIC PANEL,BMP [CHEM] AM Lab 12/11/17 05:11 Ordered BASIC METABOLIC PANEL,BMP [CHEM] AM Lab 12/12/17 05:11 Ordered BASIC METABOLIC PANEL,BMP [CHEM] AM Lab 12/13/17 05:11 Ordered CBC WITH AUTO DIFF [HEME] AM Lab 12/10/17 05:11 Ordered CBC WITH AUTO DIFF [HEME] AM Lab 12/11/17 05:11 Ordered CBC WITH AUTO DIFF [HEME] AM Lab 12/12/17 05:11 Ordered CBC WITH AUTO DIFF [HEME] AM Lab 12/13/17 05:11 Ordered MAGNESIUM [CHEM] AM Lab 12/10/17 05:11 Ordered MAGNESIUM [CHEM] AM Lab 12/11/17 05:11 Ordered MAGNESIUM [CHEM] AM Lab 12/12/17 05:11 Ordered MAGNESIUM [CHEM] AM Lab 12/13/17 05:11 Ordered Aspirin Med 12/09/17 09:00 Active 81 mg PO DAILY Famotidine [Pepcid] Med 12/09/17 14:15 Active 20 mg IVPUSH DAILY Losartan [Cozaar] Med 12/09/17 09:00 Active 100 mg PO DAILY Nitroglycerin [Nitrostat] Med 12/08/17 20:10 Active 0.4 mg SL Q5M PRN Resuscitation Status Routine Resus Stat 12/08/17 17:51 Ordered Medication Orders Aspirin (Aspirin) 81 mg PO DAILY COUNTS INCLUDE 234 BEDS AT THE [facility] Last Admin: 12/09/17 09:36 Dose: 81 mg Famotidine (Pepcid) 20 mg IVPUSH DAILY COUNTS INCLUDE 234 BEDS AT THE [facility] Last Admin: 12/09/17 14:17 Dose: 20 mg Losartan Potassium (Cozaar) 100 mg PO DAILY COUNTS INCLUDE 234 BEDS AT THE [facility] Last Admin: 12/09/17 09:57 Dose: 100 mg Nitroglycerin (Nitrostat) 0.4 mg SL Q5M PRN PRN Reason: Chest Pain Sodium Chloride (Saline Flush) 10 ml FLUSH ASDIRECTED PRN PRN Reason: Keep Vein Open Last Admin: 12/08/17 13:53 Dose: 10 ml Assessment/Plan Comment:: I/P: Acute: Chest Pain * x 6 days; Pt can't remember anything specifically starting it, never had anything like this before * Risk Factors: HTN, h/o GERD, Anxiety/Agitation * Cardiac Workup essentially negative: * EKG shows NSR with no acute changes; 1st Degree Heart Block * Troponin negative * CXR shows nothing acute; pending formal read * Stress Test pending * PET scan pending * Lipid Panel pending * ECHO pending * Offered elective catheterization if interested, but not recommended at this time * Infectious work up: * Afebrile, no leukocytosis * No Cough or other symptoms * SOB when in pain only * R/O PE: * D-dimer was normal * SOB when in pain only * R/O GERD/Peptic ulcer: * Started taking GERD medications Friday; PCP was following * Does not improve/get worse with eating * Denies taking Ibuprophen on empty stomach * H-Pylori negative * CXR negative for anything acute * Given Protonix and GI cocktail in ED--> seemed to help; will repeat this * R/O Anxiety--> Pt denies, but is currently very agitated * PRN Ativan Elevated Blood Sugar * Glu 264 in ED * No h/o DM2 * A1C pending Chronic: GERD SOB HTN Impaired Vision CKD III * BUN 23, Cr 1.7, eGFR 39 Plan: Transferred to observation He remains stable Other orders as indicated above Routine AM labs Heart Healthy Diet DVT Prophylaxis: SCDs GI Prophylaxis: Pepcid Code Status: Full Code; PCP: Dr. Falcon
[2017-12-09] MEDS ORDERED: hydrALAZINE 20 MG/ML SDV IVPUSH PRN (16:23)
--- NOTE | 2017-12-09 16:23 | PCM.PN ---
- General Info Date of Service: 12/09/17 Admission Dx/Problem (Free Text): Admission Diagnosis/Problem Admission Diagnosis/Problem Chest pain Subjective Update: In to see Erik. He is extremely agitated and states he is frustrated that he is still having chest pain. I asked him if he knew what he thought caused it and he said "I don't know! You're the doctor! You tell me!". I explained to him my differential and that so far all of his cardiac tests have been negative, his clinical disposition and labs don't reflect an acute illness/infection, PE is not likely with negative D-Dimer and CP is not pleuritic in nature, he denies any anxiety, his CP is not reproducible with palpation so it is not musculoskeletal in nature, so the last possibility would be GERD. He states he' s not sure if that's true but he is willing to re-try the IV protonix and GI cocktail. I also offered ECHO as a final way to r/o cardiac etiology which he agreed with as well as contacting cardiology for an elective catheterization, but that I don't believe it to be necessary with his workup. He states he does not want the catheterization as "I don't think it's my heart anyway". No other concerns at this time. Nursing has noticed his BP has been somewhat elevated, most likely d/t pain and h/o HTN, so will put in PRN Hydralazine with PRN pain management. Just re-checked with the pt after having the GI cocktail and he is much more relaxed, stating "That medication seemed to help. I feel much better now. Especially knowing it's not my heart". He will likely by D/C'd tomorrow pending clinical disposition. We will forward his ECHO results to his PCP. Functional Status: Reports: Pain Controlled, Tolerating Diet, Ambulating, Urinating - Review of Systems General: Reports: No Symptoms. Denies: Fever, Chills HEENT: Reports: No Symptoms Pulmonary: Reports: Shortness of Breath (when having chest pain only). Denies: Pleuritic Chest Pain, Cough, Wheezing Cardiovascular: Reports: Chest Pain (intermittent, states it is a sharp pain). Denies: Dyspnea on Exertion, Orthopnea, Edema Gastrointestinal: Reports: No Symptoms. Denies: Abdominal Pain, Diarrhea, Nausea, Vomiting Genitourinary: Reports: No Symptoms Musculoskeletal: Reports: No Symptoms Skin: Reports: No Symptoms Neurological: Reports: No Symptoms Psychiatric: Reports: No Symptoms - Patient Data Vitals - Most Recent: Last Vital Signs Temp 98.2 F 12/09/17 15:41 Pulse 70 12/09/17 15:42 Resp 18 12/09/17 15:41 BP 163/67 H 12/09/17 15:42 Pulse Ox 94 L 12/09/17 15:42 Weight - Most Recent: 188 lb 3.2 oz I&O - Last 24 Hours: Intake & Output 12/09/17 12/09/17 12/09/17 06:59 14:59 22:59 Intake Total 300 180 Balance 300 180 Lab Results Last 24 Hours: Laboratory Results - last 24 hr 12/08/17 12/09/17 12/09/17 Range/Units 21:23 05:25 05:25 WBC 7.90 (4.23-9.07) K/mm3 RBC 4.79 (4.63-6.08) M/mm3 Hgb 14.9 (13.7-17.5) gm/L Hct 43.1 (40.1-51.0) % MCV 90.0 (79.0-92.2) fl MCH 31.1 (25.7-32.2) pg MCHC 34.6 (32.2-35.5) g/dl RDW Std Deviation 44.0 H (35.1-43.9) fL Plt Count 234 (163-337) K/mm3 MPV 10.7 (9.4-12.3) fl Neut % (Auto) 57.3 (34.0-67.9) % Lymph % (Auto) 30.4 (21.8-53.1) % [place] % (Auto) 7.8 (5.3-12.2) % Eos % (Auto) 3.8 (0.8-7.0) Baso % (Auto) 0.4 (0.1-1.2) % Neut # (Auto) 4.53 (1.78-5.38) K/mm3 Lymph # (Auto) 2.40 (1.32-3.57) K/mm3 [place] # (Auto) 0.62 (0.30-0.82) K/mm3 Eos # (Auto) 0.30 (0.04-0.54) K/mm3 Baso # (Auto) 0.03 (0.01-0.08) K/mm3 Sodium 139 (136-145) mEq/L Potassium 4.1 (3.5-5.1) mEq/L Chloride 104 (98-107) mEq/L Carbon Dioxide 24 (21-32) mEq/L Anion Gap 15.1 H (5-15) BUN 19 H (7-18) mg/dL Creatinine 1.4 H (0.7-1.3) mg/dL Est Cr Clr Drug Dosing 39.36 mL/min Estimated GFR (MDRD) 49 (>60) mL/min BUN/Creatinine Ratio 13.6 L (14-18) Glucose 165 H (83-115) mg/dL Calcium 8.8 (8.5-10.1) mg/dL Troponin I 0.029 (0.00-0.056) ng/mL Triglycerides (<150) mg/dL Cholesterol (<200) mg/dL LDL Cholesterol Direct (<100) mg/dL HDL Cholesterol (40-59) mg/dL 12/09/17 12/09/17 Range/Units 05:25 05:25 WBC (4.23-9.07) K/mm3 RBC (4.63-6.08) M/mm3 Hgb (13.7-17.5) gm/L Hct (40.1-51.0) % MCV (79.0-92.2) fl MCH (25.7-32.2) pg MCHC (32.2-35.5) g/dl RDW Std Deviation (35.1-43.9) fL Plt Count (163-337) K/mm3 MPV (9.4-12.3) fl Neut % (Auto) (34.0-67.9) % Lymph % (Auto) (21.8-53.1) % [place] % (Auto) (5.3-12.2) % Eos % (Auto) (0.8-7.0) Baso % (Auto) (0.1-1.2) % Neut # (Auto) (1.78-5.38) K/mm3 Lymph # (Auto) (1.32-3.57) K/mm3 [place] # (Auto) (0.30-0.82) K/mm3 Eos # (Auto) (0.04-0.54) K/mm3 Baso # (Auto) (0.01-0.08) K/mm3 Sodium (136-145) mEq/L Potassium (3.5-5.1) mEq/L Chloride (98-107) mEq/L Carbon Dioxide (21-32) mEq/L Anion Gap (5-15) BUN (7-18) mg/dL Creatinine (0.7-1.3) mg/dL Est Cr Clr Drug Dosing mL/min Estimated GFR (MDRD) (>60) mL/min BUN/Creatinine Ratio (14-18) Glucose (83-115) mg/dL Calcium (8.5-10.1) mg/dL Troponin I < 0.017 (0.00-0.056) ng/mL Triglycerides 210 H (<150) mg/dL Cholesterol 208 H (<200) mg/dL LDL Cholesterol Direct 143 H* (<100) mg/dL HDL Cholesterol 33.0 L (40-59) mg/dL Med Orders - Current: Current Medications Aspirin (Aspirin) 81 mg PO DAILY [facility] Last Admin: 12/09/17 09:36 Dose: 81 mg Famotidine (Pepcid) 20 mg IVPUSH DAILY [facility] Last Admin: 12/09/17 14:17 Dose: 20 mg Losartan Potassium (Cozaar) 100 mg PO DAILY [facility] Last Admin: 12/09/17 09:57 Dose: 100 mg Nitroglycerin (Nitrostat) 0.4 mg SL Q5M PRN PRN Reason: Chest Pain Sodium Chloride (Saline Flush) 10 ml FLUSH ASDIRECTED PRN PRN Reason: Keep Vein Open Last Admin: 12/08/17 13:53 Dose: 10 ml Discontinued Medications Aspirin (Aspirin) 324 mg PO ONETIME ONE Stop: 12/08/17 13:40 Last Admin: 12/08/17 13:53 Dose: 324 mg Al Hydroxide/Mg Hydroxide 30 (ml/ Lidocaine HCl 15 ml) 0 ml PO ONETIME ONE Stop: 12/09/17 14:44 Last Admin: 12/09/17 15:40 Dose: 45 ml Famotidine (Pepcid) 20 mg IVPUSH ONETIME ONE Stop: 12/08/17 13:41 Last Admin: 12/08/17 13:53 Dose: 20 mg Regadenoson (Lexiscan) 0.4 mg IVPUSH ONETIME ONE Stop: 12/09/17 08:08 Last Admin: 12/09/17 08:09 Dose: 0.4 mg - Exam Quality Assessment: DVT Prophylaxis General: Alert, Oriented, Cooperative, No Acute Distress HEENT: Pupils Equal, Pupils Reactive, EOMI, Mucous Membr. Moist/[place] Neck: Supple Lungs: Clear to Auscultation, Normal Respiratory Effort Cardiovascular: Regular Rate, Regular Rhythm GI/Abdominal Exam: Normal Bowel Sounds, Soft, Non-Tender, No Organomegaly, No Distention, No Abnormal Bruit, No Mass, Pelvis Stable (Male) Exam: Deferred Back Exam: Normal Inspection, Full Range of Motion Extremities: Normal Inspection, Normal Range of Motion, Non-Tender, No Pedal Edema, Normal Capillary Refill Peripheral Pulses: 2+: Posterior Tibial (L), Posterior Tibial (R), Dorsalis Pedis (L), Dorsalis Pedis (R) Skin: Warm, Dry, Intact Neurological: No New Focal Deficit Psy/Mental Status: Alert, Agitated - Problem List & Annotations (1) Chest pain SNOMED Code(s): 38494650 Code(s): R07.9 - CHEST PAIN, UNSPECIFIED Status: Acute Priority: High Current Visit: Yes Qualifiers: Chest pain type: unspecified Qualified Code(s): R07.9 - Chest pain, unspecified (2) Reflux esophagitis SNOMED Code(s): 529203763 Code(s): K21.0 - GASTRO-ESOPHAGEAL REFLUX DISEASE WITH ESOPHAGITIS Status: Acute Priority: High Current Visit: Yes - Problem List Review Problem List Initiated/Reviewed/Updated: Yes - My Orders Last 24 Hours: My Active Orders 12/09/17 15:17 SCD [Sequential Compression Device] [OM.PC] Routine 12/09/17 15:45 A1C [GLYCOSYLATED HEMOGLOBIN,HGBA1C] [CHEM] Routine - Plan Plan:: I/P: Acute: Chest Pain * Most likely 2/2 GERD * x 6 days; Pt can't remember anything specifically starting it, never had anything like this before * Risk Factors: HTN, h/o GERD, Anxiety/Agitation * Cardiac Workup essentially negative: * EKG shows NSR with no acute changes; 1st Degree Heart Block * Serial Troponins negative * CXR shows nothing acute; pending formal read * Stress Test negative * PET scan --> 1. 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 2. No findings of reversible ischemia are seen. * Lipid Panel pending * ECHO pending * Offered elective catheterization if interested, but not recommended at this time * R/O Infection: * Afebrile, no leukocytosis * No Cough or other symptoms * SOB when in pain only * R/O PE: * D-dimer was normal at 0.49 * Given 325mg ASA in ED * Takes 81 mg ASA daily * SOB when in pain only, no cough, chest pain not pleuritic in nature * R/O Anxiety--> Pt denies, but is currently very agitated * PRN Ativan * R/O Musculoskeletal * No h/o injury, pain cannot be reproduced with palpation * R/O GERD/Peptic ulcer: * Started taking GERD medications Friday; PCP was following * Does not improve/get worse with eating * Denies taking Ibuprophen on empty stomach * H-Pylori negative * CXR negative for anything acute * Given Protonix and GI cocktail in ED--> seemed to help; will repeat this * F/U with GI specialist Elevated Blood Sugar * Glu 264 in ED * No h/o DM2 * A1C pending Chronic: GERD SOB HTN * PRN Hydralazine Impaired Vision CKD III * BUN 23, Cr 1.7, eGFR 39 Plan: Transferred to observation He remains stable Other orders as indicated above Routine AM labs Heart Healthy Diet DVT Prophylaxis: SCDs GI Prophylaxis: Pepcid Code Status: Full Code; PCP: Dr. Falcon D/C Plan: * He will likely by D/C'd tomorrow pending clinical disposition. * We will forward his ECHO results to his PCP. * F/U with PCP and GI specialist for GERD management
[2017-12-09] MEDS ORDERED: LORazepam 0.5 MG Tab PO PRN (16:51)
[2017-12-09] MEDS ORDERED: Simvastatin 10 MG Tab PO SCH (21:00)
[2017-12-10] MEDS ORDERED: Aluminum Hydroxide/Magnesium Hydroxide/Simethicone Susp 30 ML Cup PO PRN (04:21)
[2017-12-10] MEDS ORDERED: metFORMIN 500 MG Tab PO SCH (07:00)
[2017-12-10] MEDS: Aspirin 81 MG Tab.Chew PO SCH (08:56)
[2017-12-10] MEDS: Losartan 100 MG Tab PO SCH (08:56)
[2017-12-10] MEDS: Famotidine 20 MG/2 ML SDV IVPUSH SCH (08:56)
[2017-12-10] MEDS ORDERED: glipiZIDE 5 MG Tab.ER PO SCH (09:30)
[2017-12-10] MEDS ORDERED: Pantoprazole 40 MG Tab.CR PO SCH (16:00)
--- NOTE | 2017-12-10 18:12 | PCM.DCSUM1 ---
Discharge Summary - Hospital Course HPI Initial Comments: The patient presents with epigastric pain that radiates to his chest. This started about 1/2 hour before arrival. This has been on ongoing problem for the past 6 days. He was seen her by me 5 days ago for the same. His EKG, CXR and labs looked good. I gave him some pepcid IV and a GI cocktail and he did good. He continues to have episodes of this burning chest pain. The pain will come and go. It usually lasts for 15 minutes at a time and goes away for hours. He says this happens when he walks at times. He is also short of breath at times. He usually walks a mile a day but he has been doing less because of the chest pain. He went to see Dr Falcon today and he did an EKG and checked his troponin. His EKG looked good and his troponin was negative. He set up a stress test for tomorrow. Dr Falcon told the patient if he had more pain to come in to the ER right away. He had more pain and came in. The pain is gone now. He has no fever, chills, cough, nausea or vomiting. He has a history of hypertension but no WA. Diagnosis: Stroke: No - Discharge Data Discharge Date: 12/10/17 (ADMIT 12/08/17) Discharge Disposition: Home, Self-Care 01 Condition: Good - Discharge Diagnosis/Problem(s) (1) Chest pain SNOMED Code(s): 57130590 ICD Code: R07.9 - CHEST PAIN, UNSPECIFIED Status: Acute Priority: High Qualifiers: Chest pain type: unspecified Qualified Code(s): R07.9 - Chest pain, unspecified (2) Reflux esophagitis SNOMED Code(s): 363843542 ICD Code: K21.0 - GASTRO-ESOPHAGEAL REFLUX DISEASE WITH ESOPHAGITIS Status : Acute Priority: High (3) Hyperlipidemia SNOMED Code(s): 03270339 ICD Code: E78.5 - HYPERLIPIDEMIA, UNSPECIFIED Status: Chronic Priority: Medium Qualifiers: Hyperlipidemia type: unspecified Qualified Code(s): E78.5 - Hyperlipidemia , unspecified (4) Diabetes mellitus SNOMED Code(s): 35849215 ICD Code: E11.9 - TYPE 2 DIABETES MELLITUS WITHOUT COMPLICATIONS Status: Chronic Priority: Medium Qualifiers: Diabetes mellitus type: type 2 Diabetes mellitus moth exterminator insulin use: without chcf use Diabetes mellitus complication status: with unspecified complications Qualified Code(s): E11.8 - Type 2 diabetes mellitus with unspecified complications (5) Hypertension SNOMED Code(s): 82143737 ICD Code: I10 - ESSENTIAL (PRIMARY) HYPERTENSION Status: Chronic Qualifiers: Hypertension type: essential hypertension Qualified Code(s): I10 - Essential (primary) hypertension (6) CKD (chronic kidney disease) stage 3, GFR 30-59 ml/min SNOMED Code(s): 207194913 ICD Code: N18.3 - CHRONIC KIDNEY DISEASE, STAGE 3 (MODERATE) Status: Chronic Priority: Medium - Patient Summary/Data Operative Procedure(s) Performed: none Complications: none Consults: Consultations 12/09/17 19:51 Consult to Diabetic Nurse Specialist [CONS] Routine 12/10/17 10:21 Consult to Dietary [Consult to Boarder Machine] [CONS] Routine Labs Pending at D/C: none Recommended Follow-up Testing/Procedures: Follow up with PCP in 7-10 days. Recommend f/u GI specialist as well. 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 2. No regional wall motion abnormalities 3. No findings of reversible ischemia are seen. * Lipid Panel--> Tryglycerides 201, Cholesterol 208, LDL 143, HDL 33--> Start on statin * ECHO--> 1. LVEF 60% 2. Impaired relaxation (Grade 1) pattern of LV diastolic filling 3. Trace mitral valve and tricuspid valve regurgitation * Offered elective catheterization if interested, but not recommended at this time * R/O Infection: * Afebrile, no leukocytosis * No Cough or other symptoms * SOB when in pain only * R/O PE: * D-dimer was normal at 0.49 * Given 325mg ASA in ED * Takes 81 mg ASA daily * SOB when in pain only, no cough, chest pain not pleuritic in nature * R/O Anxiety--> Pt denies, but is currently very agitated * PRN Ativan * R/O Musculoskeletal * No h/o injury, pain cannot be reproduced with palpation * R/O GERD/Peptic ulcer: * Started taking GERD medications Friday; PCP was following * Does not improve/get worse with eating * Denies taking Ibuprophen on empty stomach * H-Pylori negative * CXR negative for anything acute * Given Protonix and GI cocktail in ED--> seemed to help; will repeat this * F/U with GI specialist DM2 * Glu 264 in ED * No h/o DM2 * A1C is elevated at 7.1. * Currently not on any Diabetic Medication--> Start on Gliburide d/t CKD * Diabetic Nurse consult * F/u with his PCP Chronic: GERD SOB HTN * PRN Hydralazine Impaired Vision CKD III * BUN 23, Cr 1.7, eGFR 39 Plan: Transferred to observation He remains stable Other orders as indicated above Routine AM labs Heart Healthy Diet, ADA diet DVT Prophylaxis: SCDs GI Prophylaxis: Pepcid Code Status: Full Code; PCP: Dr. Ezekiel Valencia did well after being admitted to observation for atypical chest pain. After an extensive workup, it was found to most likely be caused by GERD. Cardiac workup which included EKG, serial troponins, Stress test, PET scan and ECHO were all negative. We were able to r/o infection, PE, musculoskeletal issue and peptic ulcer. He responded well to Protonix and GI cocktail. His workup also showed that he has DM2 (A1C 7.1) and HLD, both of which he is not on medications for, so we started him on a regimen here. He also had a dietary and diabetic education so he can make lifestyle changes to combat these issues. He was discharged home today with Protonix, Mag-Al Plus, Gliburide, and Simvastatin. Recommend F/U with PCP and GI specialist for GERD management. - Patient Instructions Diet: Heart Healthy Diet, Diabetic Diet Activity: As Tolerated Driving: May Drive Today Showering/Bathing: May Shower Notify Provider of: Fever, Increased Pain, Nausea and/or Vomiting - Discharge Plan *PRESCRIPTION DRUG MONITORING PROGRAM REVIEWED*: Not Applicable *COPY OF PRESCRIPTION DRUG MONITORING REPORT IN PATIENT RON: Not Applicable Prescriptions/Med Rec: Alum Hydrox/Mag Hydrox/Simeth [Mag-Al Plus] 30 ml PO Q4H PRN #240 cup PRN Reason: Heartburn glipiZIDE [Glucotrol XL] 5 mg PO DAILY #30 tab.er Pantoprazole [ProTONIX] 40 mg PO BIDAC #60 tab.cr Simvastatin [Zocor] 10 mg PO BEDTIME #10 tablet Home Medications: Home Meds Losartan [Cozaar] 100 mg PO DAILY 12/03/17 [History] Ascorbate Calcium [Vitamin C] 500 mg PO DAILY 12/08/17 [History] Aspirin 81 mg PO DAILY 12/08/17 [History] Cyanocobalamin (Vitamin B12) [Vitamin B12] 1,000 mcg PO DAILY 12/08/17 [History] Naproxen Sodium [Aleve] 220 mg PO BID PRN 12/08/17 [History] Vitamin B Complex & Vit C No.4 [Super B Complex] 150 mg PO DAILY 12/08/17 [ History] Alum Hydrox/Mag Hydrox/Simeth [Mag-Al Plus] 30 ml PO Q4H PRN #240 cup 12/10/17 [ Rx] Pantoprazole [ProTONIX] 40 mg PO BIDAC #60 tab.cr 12/10/17 [Rx] Simvastatin [Zocor] 10 mg PO BEDTIME #10 tablet 12/10/17 [Rx] glipiZIDE [Glucotrol XL] 5 mg PO DAILY #30 tab.er 12/10/17 [Rx] Patient Handouts: Cholesterol, [id number], Tips for Eating Away From Home If You Have Diabetes, Food Choices for Gastroesophageal Reflux Disease, Adult, DASH Eating Plan, Nonspecific Chest Pain, Type 2 Diabetes Mellitus, Self Care, Adult, [id number], Hypertension, [id number] Referrals: Aris Falcon MD [Primary Care Provider] - 12/10/17 3:45 pm (Please follow-up with Dr. Falcon TODAY at your previously scheduled appointment at 345pm.) - Discharge Summary/Plan Comment DC Time >30 min.: Yes (45) - General Info Date of Service: 12/10/17 Admission Dx/Problem (Free Text: Admission Diagnosis/Problem Admission Diagnosis/Problem Chest pain Subjective Update: In to see Peter. He is extremely agitated and states he is frustrated that he is still having chest pain. I asked him if he knew what he thought caused it and he said "I don't know! You're the doctor! You tell me!". I explained to him my differential and that so far all of his cardiac tests have been negative, his clinical disposition and labs don't reflect an acute illness/infection, PE is not likely with negative D-Dimer and CP is not pleuritic in nature, he denies any anxiety, his CP is not reproducible with palpation so it is not musculoskeletal in nature, so the last possibility would be GERD. He states he' s not sure if that's true but he is willing to re-try the IV protonix and GI cocktail. I also offered ECHO as a final way to r/o cardiac etiology which he agreed with as well as contacting cardiology for an elective catheterization, but that I don't believe it to be necessary with his workup. He states he does not want the catheterization as "I don't think it's my heart anyway". No other concerns at this time. Nursing has noticed his BP has been somewhat elevated, most likely d/t pain and h/o HTN, so will put in PRN Hydralazine with PRN pain management. Just re-checked with the pt after having the GI cocktail and he is much more relaxed, stating "That medication seemed to help. I feel much better now. Especially knowing it's not my heart". He will likely by D/C'd tomorrow pending clinical disposition. We will forward his ECHO results to his PCP. Functional Status: Reports: Pain Controlled, Tolerating Diet, Ambulating, Urinating - Review of Systems General: Reports: No Symptoms HEENT: Reports: No Symptoms Pulmonary: Reports: No Symptoms Cardiovascular: Reports: No Symptoms Gastrointestinal: Reports: No Symptoms Genitourinary: Reports: No Symptoms Musculoskeletal: Reports: No Symptoms Skin: Reports: No Symptoms Neurological: Reports: No Symptoms Psychiatric: Reports: No Symptoms - Patient Data Vitals - Most Recent: Last Vital Signs Temp 97.7 F 12/10/17 08:59 Pulse 66 12/10/17 08:59 Resp 18 12/10/17 08:59 BP 131/61 12/10/17 08:59 Pulse Ox 93 L 12/10/17 08:59 Weight - Most Recent: 187 lb 12.8 oz I&O - Last 24 hours: Intake & Output 12/10/17 12/10/17 12/10/17 06:59 14:59 22:59 Intake Total 100 540 Balance 100 540 Lab Results - Last 24 hrs: Laboratory Results - last 24 hr 12/10/17 12/10/17 Range/Units 06:00 06:00 WBC 10.28 H (4.23-9.07) K/mm3 RBC 4.74 (4.63-6.08) M/mm3 Hgb 14.9 (13.7-17.5) gm/L Hct 43.0 (40.1-51.0) % MCV 90.7 (79.0-92.2) fl MCH 31.4 (25.7-32.2) pg MCHC 34.7 (32.2-35.5) g/dl RDW Std Deviation 44.6 H (35.1-43.9) fL Plt Count 236 (163-337) K/mm3 MPV 10.7 (9.4-12.3) fl Neut % (Auto) 63.2 (34.0-67.9) % Lymph % (Auto) 26.4 (21.8-53.1) % [place] % (Auto) 8.1 (5.3-12.2) % Eos % (Auto) 1.7 (0.8-7.0) Baso % (Auto) 0.2 (0.1-1.2) % Neut # (Auto) 6.51 H (1.78-5.38) K/mm3 Lymph # (Auto) 2.71 (1.32-3.57) K/mm3 [place] # (Auto) 0.83 H (0.30-0.82) K/mm3 Eos # (Auto) 0.17 (0.04-0.54) K/mm3 Baso # (Auto) 0.02 (0.01-0.08) K/mm3 Sodium 138 (136-145) mEq/L Potassium 4.2 (3.5-5.1) mEq/L Chloride 104 (98-107) mEq/L Carbon Dioxide 27 (21-32) mEq/L Anion Gap 11.2 (5-15) BUN 24 H (7-18) mg/dL Creatinine 1.6 H (0.7-1.3) mg/dL Est Cr Clr Drug Dosing 34.44 mL/min Estimated GFR (MDRD) 42 (>60) mL/min BUN/Creatinine Ratio 15.0 (14-18) Glucose 168 H (83-115) mg/dL Calcium 9.0 (8.5-10.1) mg/dL Magnesium 2.3 (1.8-2.4) mg/dl Med Orders - Current: Current Medications Discontinued Medications Al Hydroxide/Mg Hydroxide (Mag-Al Plus) 30 ml PO Q4H PRN PRN Reason: Heartburn Last Admin: 12/10/17 04:24 Dose: 30 ml Aspirin (Aspirin) 324 mg PO ONETIME ONE Stop: 12/08/17 13:40 Last Admin: 12/08/17 13:53 Dose: 324 mg Aspirin (Aspirin) 81 mg PO DAILY [facility] Last Admin: 12/10/17 08:56 Dose: 81 mg Al Hydroxide/Mg Hydroxide 30 (ml/ Lidocaine HCl 15 ml) 0 ml PO ONETIME ONE Stop: 12/09/17 14:44 Last Admin: 12/09/17 15:40 Dose: 45 ml Famotidine (Pepcid) 20 mg IVPUSH ONETIME ONE Stop: 12/08/17 13:41 Last Admin: 12/08/17 13:53 Dose: 20 mg Famotidine (Pepcid) 20 mg IVPUSH DAILY [facility] Last Admin: 12/10/17 08:56 Dose: 20 mg Glipizide (Glucotrol Xl) 5 mg PO DAILY [facility] Last Admin: 12/10/17 10:26 Dose: 5 mg Hydralazine HCl (Apresoline) 10 mg IVPUSH Q4H PRN PRN Reason: Hypertension Lorazepam (Ativan) 0.5 mg PO Q6H PRN PRN Reason: Anxiety Losartan Potassium (Cozaar) 100 mg PO DAILY [facility] Last Admin: 12/10/17 08:56 Dose: 100 mg Metformin HCl (Glucophage) 500 mg PO BIDMEALS [facility] Last Admin: 12/10/17 10:33 Dose: Not Given Nitroglycerin (Nitrostat) 0.4 mg SL Q5M PRN PRN Reason: Chest Pain Pantoprazole Sodium (Protonix) 40 mg PO BIDAC [facility] Regadenoson (Lexiscan) 0.4 mg IVPUSH ONETIME ONE Stop: 12/09/17 08:08 Last Admin: 12/09/17 08:09 Dose: 0.4 mg Simvastatin (Zocor) 10 mg PO BEDTIME SURINDER Last Admin: 12/09/17 20:59 Dose: 10 mg Sodium Chloride (Saline Flush) 10 ml FLUSH ASDIRECTED PRN PRN Reason: Keep Vein Open Last Admin: 12/08/17 13:53 Dose: 10 ml - Exam Quality Assessment: Reports: DVT Prophylaxis General: Reports: Alert, Oriented HEENT: Reports: Pupils Equal, Pupils Reactive, EOMI, Mucous Membr. Moist/[place] Neck: Reports: Supple Lungs: Reports: Clear to Auscultation, Normal Respiratory Effort Cardiovascular: Reports: Regular Rate, Regular Rhythm GI/Abdominal Exam: Normal Bowel Sounds, Soft, Non-Tender, No Organomegaly, No Distention, No Abnormal Bruit, No Mass, Pelvis Stable (Male) Exam: Deferred Rectal (Males) Exam: Deferred Back Exam: Reports: Normal Inspection, Full Range of Motion Extremities: Normal Inspection, Normal Range of Motion, Non-Tender, No Pedal Edema, Normal Capillary Refill Skin: Reports: Warm, Dry, Intact Wound/Incisions: Reports: Healing Well Neurological: Reports: No New Focal Deficit Psy/Mental Status: Reports: Alert, Normal Affect, Normal Mood
--- NOTE | 2017-12-11 09:21 | CR ---
Chest: Portable view of the chest was obtained. Comparison: Prior chest x-ray of 12/04/17. Heart size is normal. Tortuous thoracic aorta is seen. Lungs are clear without acute parenchymal change. Minimal apical pleural thickening seen on the right side. Bony structures are grossly intact. Impression: 1. Nothing acute is seen on portable chest x-ray. Diagnostic code #2
== END 2017-12-10 11:35 | disposition home or self-care (01) ==
LOC: JD.ED 13:08 → JD.MS 16:35
PROVIDERS: ADMIT Internal Medicine Cardiovascular Disease; ATTEND Internal Medicine Cardiovascular Disease
DX: R07.89 Other chest pain (principal); K21.0 Gastro-esophageal reflux disease with esophagitis; I12.9 Hypertensive chronic kidney disease with stage 1 through stage 4 chronic kidney disease, or unspecified chronic kidney disease; E11.22 Type 2 diabetes mellitus with diabetic chronic kidney disease; N18.3 Chronic kidney disease, stage 3 (moderate); H54.7 Unspecified visual loss; E78.5 Hyperlipidemia, unspecified; Z87.891 Personal history of nicotine dependence; Z79.82 Long term (current) use of aspirin; Z79.899 Other long term (current) drug therapy
CPT/HCPCS: 36415; 71045; 71045-26; 78452; 78452-26; 80048; 80053; 80061; 83036; 83735; 84484; 85025; 85379; 86677; 93005; 93017; 93306; A9270-GY; A9500; J2785; J3490; J7050